=== PATIENT | male | born 1950 | race Caucasian/White ===

== ENCOUNTER 2017-05-24 15:37 | Emergency (ER) | payer MEDICARE ==
[~2017-05-24 15:37] MED LIST: ADULT LOW DOSE81 MG PO; COREG 3.125M3.125 MG PO; FLOMAX 0.4 MG0.4 MG PO; LANTUS100 UNIT/1 SQ; LIPITOR TAB 2020 MG PO; NOVOLOG 10100 UNITS1 SQ; PROSCAR5 MG PO
== END 2017-05-24 18:35 | disposition left against medical advice (07) ==
LOC: ER1 15:37
DX: R51 Headache (principal); I10 Essential (primary) hypertension; Z91.14 Patient's other noncompliance with medication regimen
CPT/HCPCS: 70450; 71010; 93005; 99285

== ENCOUNTER 2021-03-12 18:41 | Emergency (ER) | payer MEDICARE ==
[~2021-03-12 18:41] MED LIST changes: +BD ULTRA-FINE1 EAC2 MC; +CARAFATE1 GM/10 ML PO; +CEFDINIR300 MG PO; +CEFUROXIME500 MG PO; +COREG 25MG TAB25 MG PO; +CYTOTEC200 MCG PO; +DIFLUCAN200 MG PO; +ELIQUIS5 MG PO; +HYDRALAZINE HCL50 MG PO; +IMDUR ER TAB 6060 MG PO; +LEVEMIR100 UNIT/1 SQ; +LIPITOR40 MG PO; +LOPRESSOR 25 MG25 MG PO; +LORTAB 5-325 M1 EACH PO; +MECLIZINE HCL25 MG PO; +MEDROL4 MG PO; +NOVOLOG100 UNIT/1 SQ; +PROTONIX40 MG PO; +THERAGRAN M TAB1 EA PO
[2021-03-12 20:47] LABS: BUN/CREATININE RATIO 16 (0-10)
[2021-03-12 21:34] LABS: HEMOGLOBIN 14.7 gm/dl (14.0-17.5); RED BLOOD COUNT 5.5 M/UL (4.20-5.50); WHITE BLOOD COUNT 11.4 K/UL (4.5-11.0)
== END 2021-03-12 20:57 | disposition left against medical advice (07) ==
LOC: ER1 18:41
PROVIDERS: Family Medicine
DX: Z53.21 Procedure and treatment not carried out due to patient leaving prior to being seen by health care provider (principal)
CPT/HCPCS: 80053; 82550; 82553; 83874; 84484; 85025; 93005